=== PATIENT | male | born 1955 | race Caucasian/White ===

== ENCOUNTER → 2021-06-30 09:48 | Outpatient (CLI) | payer MEDICARE, OTHER, SELFPAY ==
--- NOTE | 2021-07-01 10:08 | PFT ---
INTRODUCTION: The patient is a 65-year-old male that presents for pulmonary function studies secondary to a diagnosis of dyspnea. Respiratory therapy reported good patient effort. Bronchodilators were used during testing. INTERPRETATION: Forced expiration spirometry demonstrates no evidence of a large airways obstructive ventilatory defect. There was no significant response to aerosolized bronchodilators. Spirograms are of suboptimal quality and terminate prior to 6 seconds, likely underestimating FVC. Body plethysmography was performed and revealed a decreased TLC to 4.4 L, 63% of predicted, indicative of a moderate restrictive ventilatory impairment. Diffusing capacity by single breath CO was within normal limits at 81% of predicted. IMPRESSION: Isolated moderate restrictive ventilatory impairment with preserved diffusing capacity.
== END ==
PROVIDERS: Referring Provider Internal Medicine Critical Care Medicine; Visit Provider Internal Medicine Critical Care Medicine
DX: R06.00 Dyspnea, unspecified (principal)
CPT/HCPCS: 94060; 94726; 94729

== ENCOUNTER 2021-07-04 11:58 | Outpatient (CLI) | payer BC, OTHER, SELFPAY ==
[2021-07-04 12:24] VITALS: PULSE 100; PULSE 101; PULSE 106; PULSE 87; PULSE 88; PULSE 97; PULSE 99; O2SAT 88; O2SAT 89; O2SAT 90; O2SAT 91; O2SAT 93; O2SAT 94
--- NOTE | 2021-07-04 12:26 | CPS ---
Patient walked entire 6 minutes without breaks at a quick pace. SpO2 was 88% right as the 6 minutes concluded, patient stated he was moderately short of breath but could have continued to walk. Less than 10 seconds after stopping SpO2 went up to 89%. Discussed with patient the possible need for oxygen at home with ambulation PRN. Patient would like to discuss with Dr. Perez.
--- NOTE | 2021-07-04 15:03 | PCM.PSN.6M ---
PSN 6 Minute Walk Test 6 Minute Walk Test 6 Minute Walk Test: 6 Minute Walk Test PSN:6-Minute Walk Test Start: 07/04/21 12:23 Freq: Status: Active Protocol: RESP.6MINW Document 07/04/21 12:24 MARIA DEL CARMEN (Rec: 07/04/21 12:29 MARIA DEL CARMEN [id number]) 6 Minute Walk Test Date Performed 07/04/21 Time Performed 12:15 Height 6 ft Weight: 108.862 kg Weight in Pounds 240.[address]: Deyvi Perez Assistive device used: None Pre-test Oxygen Delivery Method Room Air Pulse Ox (%) 93 Pulse Rate (60-100 beats/min) 88 Dyspnea Umer Scale (0-10) 0 Exertion Umer Scale (6-20) 6 1st minute Oxygen Delivery Method Room Air Pulse Ox (%) 91 Pulse Rate (60-100 beats/min) 101 H 2nd minute Oxygen Delivery Method Room Air Pulse Ox (%) 90 Pulse Rate (60-100 beats/min) 100 3rd minute Oxygen Delivery Method Room Air Pulse Ox (%) 91 Pulse Rate (60-100 beats/min) 97 4th minute Oxygen Delivery Method Room Air Pulse Ox (%) 89 Pulse Rate (60-100 beats/min) 99 5th minute Oxygen Delivery Method Room Air Pulse Ox (%) 89 Pulse Rate (60-100 beats/min) 100 6th minute Oxygen Delivery Method Room Air Pulse Ox (%) 88 Pulse Rate (60-100 beats/min) 106 H Dyspnea Umer Scale (0-10) 3 Exertion Umer Scale (6-20) 12 Post-test Oxygen Delivery Method Room Air Pulse Ox (%) 94 Pulse Rate (60-100 beats/min) 87 Full Laps Walked 23 Partial Lap, Number of Tiles Walked 10 Total Distance Walked (ft) 1367 07/04/21 12:26 Cardiopulmonary Services by Rosita Dunn Patient walked entire 6 minutes without breaks at a quick pace. SpO2 was 88% right as the 6 minutes concluded, patient stated he was moderately short of breath but could have continued to walk. Less than 10 seconds after stopping SpO2 went up to 89%. Discussed with patient the possible need for oxygen at home with ambulation PRN. Patient would like to discuss with Dr. Perez. Initialized on 07/04/21 12:26 - END OF NOTE Interpretation Interpretation: The patient was able to ambulate 1367 feet over the course of 6 minutes on room air with no assistive devices or breaks. The patient did experience significant desaturation from a baseline of 93% to as low as 88%. The patient saturated 88% in the 6-minute at the end of ambulation. Mild tachycardia with a peak heart rate of 106 bpm were noted. These findings are consistent with a respiratory limitation exercise tolerance. Recommendations Recommendations: Patient will need to be followed closely. Patient may benefit from as needed supplemental oxygen to maintain saturations above 90% versus diuresis and aggressive fluid control.
== END 2021-07-04 23:59 | disposition short-term general hospital (02) ==
LOC: PSN 12:00
PROVIDERS: Referring Provider Internal Medicine Critical Care Medicine; Visit Provider Internal Medicine Critical Care Medicine
DX: R06.00 Dyspnea, unspecified (principal)
CPT/HCPCS: 94618

== ENCOUNTER 2021-09-29 10:34 | Outpatient (CLI) | payer MEDICARE, SELFPAY ==
--- NOTE | 2021-09-29 10:39 | ECHOCS_ITS ---
Reason For Study: SOB Procedure This was a 2D Doppler, Color Flow transthoracic echocardiogram. The study was technically difficult. Exam performed in department. Left Ventricle Normal LV size. The estimated ejection fraction is 65 %. No evidence for diastolic dysfunction. No regional wall motion abnormalities noted. Right Ventricle Normal RV size. Normal systolic function. Atria Normal left atrium. Normal right atrium. No doppler evidence for ASD. Mitral Valve There is no mitral valve stenosis. Trivial mitral valve insufficiency. Tricuspid Valve There is no tricuspid stenosis. No tricuspid valve insufficiency. Unable to estimate RV systolic pressure due to inadequate jet, pulmonary artery pressure probably normal. Aortic Valve Trisinus/trileaflet aortic valve. There is no aortic stenosis. No aortic valve insufficiency. Pulmonic Valve There is no pulmonic valvular stenosis. Trivial pulmonic valve insufficiency. Great Vessels Normal aortic root. Pericardium/Pleural No pericardial effusion. Medication 22 gauge I.V. with prn adaptor inserted into right arm. Diluted definity 3ml given slow IV push to enhance endocardial definition. MMode/2D Measurements & Calculations LVIDd: 4.4 cm IVSd: 1.4 cm LAV(MOD-bp): 35.7 ml LVIDs: 2.3 cm LVPWd: 1.2 cm RVDd: 3.7 cm FS: 46.5 % LAV(MOD-bp) Indexed: 15.4 ml/m2 LAV(MOD-sp2): 23.3 ml LAV(MOD-sp4): 48.4 ml SV(MOD-sp4): 44.9 ml LVAd ap4: 31.2 cm2 LVAd ap2: 36.0 cm2 LVLd ap4: 8.4 cm LVLd ap2: 8.4 cm EDV(MOD-sp4): 96.3 ml EDV(MOD-sp2): 129.7 ml EDV(sp4-el): 97.7 ml EDV(sp2-el): 130.9 ml LVAs ap4: 21.4 cm2 LVAs ap2: 23.0 cm2 LVLs ap4: 7.4 cm LVLs ap2: 8.2 cm ESV(MOD-sp4): 51.4 ml ESV(MOD-sp2): 56.9 ml ESV(sp4-el): 52.4 ml ESV(sp2-el): 54.9 ml EF(MOD-sp4): 46.6 % EF(MOD-sp2): 56.1 % EF(sp4-el): 46.3 % SV(MOD-sp2): 72.7 ml SV(sp4-el): 45.3 ml LA A4 area: 17.8 cm2 LA dimension(2D): 3.8 cm RA A4 area: 13.4 cm2 Doppler Measurements & Calculations MV E max odilon: 68.1 cm/sec Ao V2 max: 127.4 cm/sec LV V1 max: 76.6 cm/sec Ao max P.5 mmHg LV V1 max P.4 mmHg PA V2 max: 94.0 cm/sec ECHO/Echo Complete W/ Contrast Interpretation Summary The estimated ejection fraction is 65 %. No evidence for diastolic dysfunction. Trivial mitral valve insufficiency. Ordering Physician: Deyvi Perez Referring Physician: Deyvi Perez Performed By: Christianne Jackson RDCS
--- NOTE | 2021-09-29 11:39 | EKG12_ITS ---
Test Reason : NEW ONSET AFIB Blood Pressure : / mmHG Vent. Rate : 085 BPM Atrial Rate : 111 BPM P-R Int : 000 ms QRS Dur : 100 ms QT Int : 386 ms P-R-T Axes : 000 -45 002 degrees QTc Int : 459 ms Atrial fibrillation Left anterior fascicular block Abnormal ECG Confirmed by JULIA QUINTANA, ANNE ([id number]), scientific editor KAYLEIGH DELANEY ([id number]) on 09/30/2021 2:42:17 PM Referred By: Deyvi Perez Confirmed By:GRUPO DUMONT MD
== END 2021-09-29 23:59 | disposition home or self-care (01) ==
PROVIDERS: Referring Provider Internal Medicine Critical Care Medicine; Visit Provider Internal Medicine Critical Care Medicine
DX: R06.00 Dyspnea, unspecified (principal); I48.91 Unspecified atrial fibrillation; R06.02 Shortness of breath
CPT/HCPCS: 93005; 93306; Q9957; A4216; C8929